=== PATIENT | male | born 1965 | race African-American/Black ===

== ENCOUNTER 2019-05-31 18:53 | Inpatient (IN) | payer MEDICAID ==
[~2019-05-31] VITALS: Ht 190.5 cm; Wt 108.9 kg
[~2019-05-31 18:53] MED LIST: AMITRIPTYLINE H25 MG ORAL; AMITRIPTYLINE100 M1 PO; COZAAR50 MG ORAL; DIABETA5 MG ORAL; ENALAPRIL MALEA20 MG PO; GABAPENTIN800 MG ORAL; GLIPIZIDE5 MG ORAL; HUMALOG 75/255 UNIT1 SUBQ; HUMALOG100 UNIT/4 SUBQ; LANTUS SOL100 UNIT/1 SUBQ; LANTUS5 UNITS SUBQ; LEVAQUIN500 MG ORAL; METFORMIN HCL500 M1 ORAL; NEURONTIN100 MG ORAL; NEURONTIN600 MG ORAL; NORCO 5-325 TA1 EACH ORAL; NOVOLIN R100 UNIT/1 SUBQ; PREDNISONE10 MG ORAL; PREDNISONE5 MG ORAL; TENORMIN50 MG ORAL; TRAMADOL HCL50 MG ORAL; TYLENOL650 MG/20. ORAL; UNOBMED; [UNRECOGNIZED DRUG - SUPPLY]
--- NOTE | 2019-05-31 19:15 | NUR ---
ED Nurse Note: pt walked in c/o wound on right posterior lower extremity and elevated sugar, pt reports his sugar at home was 500s, at the bedside accucheck was 191. noted diabetic ulcer on right posterior leg, with no discharge, dry, redness and yellow crust in the center of the wuond. pt AA&ox4, gcs=15, skin warm and dry resp even and unlabored on RA, -n/v/d, ambulates w/ steady gait. Addendum: 05/31/19 at 2110 by KPADarielK D Nurse Note: pt walked in c/o wound on Left posterior lower extremity and elevated sugar, pt reports his sugar at home was 500s, at the bedside accucheck was 191. noted diabetic ulcer on LEft posterior leg, with no discharge, dry, redness and yellow crust in the center of the wuond. pt AA&ox4, gcs=15, skin warm and dry resp even and unlabored on RA, -n/v/d, ambulates w/ steady gait.
[2019-05-31 19:35] VITALS: BP 157/85
[2019-05-31 20:00] LABS: BASOPHILS % (AUTO) 1.7 % (0.0-2.0); HEMATOCRIT 41.2 % (42.0-52.0); HEMOGLOBIN 13.9 G/DL (14.2-18.0); MEAN CORPUSCULAR VOLUME 93 FL (80-99); MONOCYTES % (AUTO) 14.1 % (1.0-10.0); NEUTROPHILS % (AUTO) 54.3 % (45.0-75.0); PLATELET COUNT 269 K/UL (150-450); RED BLOOD COUNT 4.41 M/UL (4.70-6.10); RED CELL DISTRIBUTION WIDTH 12.1 % (11.6-14.8); WHITE BLOOD COUNT 7.1 K/UL (4.8-10.8)
[2019-05-31 20:07] LABS: ANION GAP 6 mmol/L (5-15); BLOOD UREA NITROGEN 19 mg/dL (7-18); CALCIUM 9.1 MG/DL (8.5-10.1); CARBON DIOXIDE 29 MMOL/L (21-32); CHLORIDE 108 MMOL/L (98-107); CREATININE 1.5 MG/DL (0.55-1.30); POTASSIUM 3.9 MMOL/L (3.5-5.1); SODIUM 143 MMOL/L (136-145)
[2019-05-31 20:19] LABS: ALANINE AMINOTRANSFERASE 18 U/L (12-78); ALBUMIN 3.1 G/DL (3.4-5.0); ALBUMIN/GLOBULIN RATIO 0.7 (1.0-2.7); ALKALINE PHOSPHATASE 83 U/L (46-116); ASPARTATE AMINO TRANSFERASE 13 U/L (15-37); BILIRUBIN,TOTAL 0.2 MG/DL (0.2-1.0)
[2019-05-31] MEDS ORDERED: Piperacillin/Tazobactam 3.375 GM in NS 110 ML IVPB ONE (20:30)
[2019-05-31 20:35] VITALS: BP 144/86
--- NOTE | 2019-05-31 20:45 | NUR ---
ED Nurse Note: pt c/o pain on left leg on the wound site, ERMD notified.
[2019-05-31] MEDS ORDERED: Morphine Sulfate 4mg/ml Inj (IV USE ONLY) IVP ONE (21:00)
--- NOTE | 2019-05-31 21:00 | NUR ---
ED Nurse Note: pt resting at this time, vss, no sx distress, will cont monitor. blanket and pillow provided for comfort.
--- NOTE | 2019-05-31 21:29 | NUR ---
ED Nurse Note: report given to DAVID Singleton from [facility].
--- NOTE | 2019-05-31 21:36 | Emergency Room Report ---
History of Present Illness General Chief Complaint: Pain Source: Patient Present Illness HPI 54-year-old male presents ED for evaluation. Complaining of left leg pain and swelling. States he is a diabetic and does not have his test strips. States his sugar might be high. Also has a ulcer to the back of his left leg for the last few weeks. States he has been unable to take care of it. Pain is throbbing, 9 out of 10, nonradiating. Denies fevers or chills. No other aggravating relieving factors. Denies any other associated symptoms Allergies: Coded Allergies: No Known Allergies (Unverified , 01/20/14) Patient History Past Medical History: DM, HTN, asthma, other - neuropathy Past Surgical History: none Pertinent Family History: none Social History: Denies: smoking, alcohol use, drug use Immunizations: UTD Reviewed Nursing Documentation: PMH: Agreed; PSxH: Agreed Nursing Documentation-PMH Hx Hypertension: Yes Hx Asthma: Yes Hx COPD: No Hx Diabetes: Yes Hx Cancer: No Hx Gastrointestinal Problems: Yes Hx Neurological Problems: Yes - Neuropathy Hx Peripheral Neuropathy: Yes Hx Dizziness: Yes Hx Syncope: Yes Hx Headaches: Yes Hx Weakness: Yes Review of Systems All Other Systems: negative except mentioned in HPI Physical Exam Vital Signs Date Time Temp Pulse Resp B/P (MAP) Pulse Ox O2 Delivery O2 Flow Rate FiO2 05/31/19 19:01 98.1 116 18 158/95 (116) 95 Room Air Sp02 EP Interpretation: reviewed, normal General Appearance: no apparent distress, alert, GCS 15, non-toxic Head: normocephalic, atraumatic Eyes: bilateral eye normal inspection, bilateral eye PERRL ENT: hearing grossly normal, normal pharynx, no angioedema, normal voice Neck: full range of motion, supple/symm/no masses Respiratory: chest non-tender, lungs clear, normal breath sounds, speaking full sentences Cardiovascular #1: regular rate, rhythm, no edema Cardiovascular #2: 2+ carotid (R), 2+ carotid (L), 2+ radial (R), 2+ radial (L) , 2+ dorsalis pedis (R), 2+ dorsalis pedis (L) Gastrointestinal: normal bowel sounds, non tender, soft, non-distended, no guarding, no rebound Rectal: deferred Genitourinary: normal inspection, no CVA tenderness Musculoskeletal: back normal, gait/station normal, normal range of motion, swelling - LLE Neurologic: alert, oriented x3, responsive, motor strength/tone normal, sensory intact, speech normal Psychiatric: judgement/insight normal, memory normal, mood/affect normal, no suicidal/homicidal ideation Reflexes: 3+ bicep (R), 3+ bicep (L), 3+ tricep (R), 3+ tricep (L), 3+ knee (R) , 3+ knee (L) Skin: other - erythema/induration LLE, 3x3cm ulcer to posterior leg Lymphatic: no adenopathy Medical Decision Making Diagnostic Impression: Primary Impression: Acute on chronic renal insufficiency Additional Impressions: diabetes Leg ulcer Qualified Codes: L97.929 - Non-pressure chronic ulcer of unspecified part of left lower leg with unspecified severity Neuropathy ER Course Hospital Course 54 yo M presents with pain, swelling to LLE Differential diagnoses include: Cellulitis, abscess, rash. Clinical course Patient placed on stretcher. After initial history and physical I ordered labs , blood Cx, UA, IVFs, pain meds labs reviewed - no leukocytosis, Hb/Hct stable, BUN/Cr elevated, lactic ok wound culture obtained antibiotics given. Case discussed with Dr Rosa's service and he agreed to accept the patient to his service for further care and support Diagnosis - acute on chronic renal insufficiency, diabetes, leg ulcer, neuropathy Patient admitted to floor in serious condition Labs Test 05/31/19 19:30 White Blood Count 7.1 K/UL (4.8-10.8) Red Blood Count 4.41 M/UL (4.70-6.10) Hemoglobin 13.9 G/DL (14.2-18.0) Hematocrit 41.2 % (42.0-52.0) Mean Corpuscular Volume 93 FL (80-99) Mean Corpuscular Hemoglobin 31.4 PG (27.0-31.0) Mean Corpuscular Hemoglobin Concent 33.6 G/DL (32.0-36.0) Red Cell Distribution Width 12.1 % (11.6-14.8) Platelet Count 269 K/UL (150-450) Mean Platelet Volume 5.3 FL (6.5-10.1) Neutrophils (%) (Auto) 54.3 % (45.0-75.0) Lymphocytes (%) (Auto) 24.0 % (20.0-45.0) Monocytes (%) (Auto) 14.1 % (1.0-10.0) Eosinophils (%) (Auto) 6.0 % (0.0-3.0) Basophils (%) (Auto) 1.7 % (0.0-2.0) Sodium Level 143 MMOL/L (136-145) Potassium Level 3.9 MMOL/L (3.5-5.1) Chloride Level 108 MMOL/L (98-107) Carbon Dioxide Level 29 MMOL/L (21-32) Anion Gap 6 mmol/L (5-15) Blood Urea Nitrogen 19 mg/dL (7-18) Creatinine 1.5 MG/DL (0.55-1.30) Estimat Glomerular Filtration Rate 58.9 mL/min (>60) Glucose Level 112 MG/DL (74-106) Lactic Acid Level 1.50 mmol/L (0.4-2.0) Calcium Level 9.1 MG/DL (8.5-10.1) Total Bilirubin 0.2 MG/DL (0.2-1.0) Aspartate Amino Transf (AST/SGOT) 13 U/L (15-37) Alanine Aminotransferase (ALT/SGPT) 18 U/L (12-78) Alkaline Phosphatase 83 U/L (46-116) Pro-B-Type Natriuretic Peptide 154 pg/mL (0-125) Total Protein 7.7 G/DL (6.4-8.2) Albumin 3.1 G/DL (3.4-5.0) Globulin 4.6 g/dL Albumin/Globulin Ratio 0.7 (1.0-2.7) Last Vital Signs Date Time Temp Pulse Resp B/P (MAP) Pulse Ox O2 Delivery O2 Flow Rate FiO2 05/31/19 20:35 98.1 115 18 144/86 100 Room Air Status: improved Disposition: ADMITTED INPATIENT Condition: Serious Referrals: [facility],REFERRING (PCP) Jasper Perez MD May 31, 2019 21:36
--- NOTE | 2019-05-31 21:38 | NUR ---
ED Nurse Note: PT TRANSFERRED TO [facility] VIA GURNEY BY STABLE ATTENDANT, ALL BELONGINGS SENT W/ PT W/ COMPLETED LIST, IV INTACT AND PATENT, VSS. RESP EVEN AND UNLABORED ON RA.
[2019-05-31 22:52] VITALS: BP 149/110
--- NOTE | 2019-05-31 23:30 | NUR ---
NURSE NOTES: Pt is admitted from ER in stable condition at 2200with Dx of hyperglycemia , bilat knee pain and left calf diabetic ulcer under Dr. Forman. Pt is awake , alert and ambulatory. Pt has left calf diabetic ulcer. Pt reports pain 7/10 on bilat knee and left calf wound site. Dr. Forman's exchange called for admission orders. Dr. Morrsi called back with admission orders, Orders read back and entered in the EMR. made aware of BP 149/110, Dr. Morris ordered hydralazine 25mg PO q6hrs prn SBP greater than 170. Pt is calm in bed now. No acute distress noted. Fall precaution in place, bed locked low in position,side rails up and call light within reach. Bed alarm on. Pt oriented to the unit. Pt's belongings checked and verified. Pt has two cell phones with cracked front glass and a channel opener outsoles at the bedside. Pt will be monitored.
[2019-06-01] VITALS (8 sets, daily range): BP systolic 104–180; BP diastolic 65–108
[2019-06-01] MEDS ORDERED: traMADol 50mg tab ORAL PRN (01:15)
[2019-06-01] MEDS ORDERED: HydrALAZINE 25mg tab ORAL PRN (01:30)
[2019-06-01] MEDS: HYDROcodone/Acetamin 5/325 tab ORAL PRN ×4 (02:16→20:43)
--- NOTE | 2019-06-01 04:01 | NUR ---
NURSE NOTES: Pt is in bed, appears to be comfortable. Wound care provided on the left calf, dressing applied.
[2019-06-01] MEDS ORDERED: Vancomycin 1.25gm vial IVPB ONE (04:25)
[2019-06-01] MEDS: Vancomycin 1.25gm/D5W 275ml IVPB SCH ×4 (04:39→19:09)
[2019-06-01] MEDS: Piperacillin/Tazobactam 3.375 GM in NS 110 ML IVPB SCH ×3 (06:21→20:43)
[2019-06-01] MEDS: NovoLOG Insulin Flexpen SUBQ SCH ×4 (06:28→21:01)
--- NOTE | 2019-06-01 08:00 | NUR ---
NURSE NOTES: Patient is awake and alert,respirations are unlabored.Right leg elevated noted wound to right l eg ,no drainage noted.No odor noted.Dressing applied,wound care consult was ordered.patient eating breakfast.Call light within reach.
[2019-06-01] MEDS: Heparin 5000 units/ml inj SUBQ SCH ×2 (10:07→20:44)
[2019-06-01] MEDS: Losartan 50mg tab ORAL SCH ×2 (10:08→18:00)
[2019-06-01] MEDS: Amitriptyline 100mg tab ORAL SCH (10:08)
[2019-06-01] MEDS ORDERED: D5W 275ml ONE (11:23)
[2019-06-01] MEDS ORDERED: Tubing IV Secondary IV ONE (11:23)
[2019-06-01] MEDS ORDERED: NS 500ML ONE (11:23)
--- NOTE | 2019-06-01 11:33 | History and Physical ---
History of Present Illness General Date patient seen: Jun 01, 2019 Reason for Hospitalization: Pain Present Illness HPI 54-year-old male presents ED for evaluation. Complaining of left leg pain and swelling. States he is a diabetic and does not have his test strips. States his sugar might be high. Also has a ulcer to the back of his left leg for the last few weeks. States he has been unable to take care of it. Pain is throbbing, 9 out of 10, nonradiating. Denies fevers or chills. No other aggravating relieving factors. Denies any other associated symptoms patient complains of difficulty walking secondary to pain in his knees. Admits to history of left knee replacement, right knee arthroscopy. However he is able to ambulate. He admits to numbness and tingling down his legs with history of neuropathy. Admits to back pain. Denies any saddle anesthesia, urinary or bowel incontinence. Denies any fevers chills, chest pain, shortness of breath. Past medical history: Diabetes, hypertension Past surgical history; left knee surgery Medications: As per med rec Allergies: None Family history: Denies Past social history: Denies drug use, EtOH use, smoking. ROS: As stated above. Aside from HPI all other review of systems are negative including more than 12 systems. Allergies: Coded Allergies: No Known Allergies (Unverified , 01/20/14) Medication History Scheduled Amitriptyline Hcl* (Amitriptyline Hcl*), 100 MG PO DAILY, (Reported) Atenolol* (Tenormin*), 50 MG ORAL BID, (Reported) Enalapril Maleate* (Enalapril Maleate*), 20 MG PO DAILY, (Reported) Gabapentin* (Neurontin*), 200 MG ORAL Q6HR, (Reported) Glipizide* (Glipizide*), 5 MG ORAL BIDAC, (Reported) Insulin Glargine (Lantus), 22 SUBQ Q12HR, (Reported) Insulin Regular, Human* (Novolin R*), 0 SUBQ AC+HS, (Reported) Losartan Potassium* (Cozaar*), 50 MG ORAL TWICE A DAY, (Reported) Metformin Hcl* (Metformin Hcl*), 500 MG ORAL TWICE A DAY, (Reported) Scheduled PRN Acetaminophen (Acetaminophen), 500 MG ORAL Q8H PRN for Prn Headache/Temp > 101, (Reported) Hydrocodone Bit/Acetaminophen 5-325* ([place] 5-325*), 1 TAB ORAL Q12HR PRN for For Pain Tramadol Hcl* (Ultram*), 50 MG ORAL Q6H PRN for For Pain, (Reported) Miscellaneous Medications [acuucheck strips] Patient History Healthcare decision maker Resuscitation status Full Code Advanced Directive on File Physical Exam Last 24 Hour Vital Signs Date Time Temp Pulse Resp B/P (MAP) Pulse Ox O2 Delivery O2 Flow Rate FiO2 06/01/19 10:09 172/107 06/01/19 10:09 97 172/107 06/01/19 10:08 172/107 06/01/19 09:53 97 172/107 (128) 06/01/19 08:00 98.1 104 20 177/108 (131) 96 06/01/19 07:02 155/103 (120) 06/01/19 04:51 180/111 06/01/19 04:00 98.1 104 20 180/106 (130) 97 06/01/19 00:00 98.4 105 20 155/105 (122) 97 05/31/19 23:08 Room Air 05/31/19 22:52 98.5 109 20 149/110 (123) 97 05/31/19 21:37 99.5 110 18 159/86 98 Room Air 05/31/19 21:21 99.5 05/31/19 20:35 98.1 115 18 144/86 100 Room Air 05/31/19 20:00 110 18 Room Air 05/31/19 19:35 98.5 102 18 157/85 98 Room Air 05/31/19 19:01 98.1 116 18 158/95 (116) 95 Room Air Intake and Output 05/31/19 06/01/19 18:59 06:59 Intake Total 975.00 ml Balance 975.00 ml Intake Oral 700 ml IV Total 275.00 ml # Voids 5 Laboratory Tests Test 05/31/19 19:30 White Blood Count 7.1 K/UL (4.8-10.8) Red Blood Count 4.41 M/UL (4.70-6.10) L Hemoglobin 13.9 G/DL (14.2-18.0) L Hematocrit 41.2 % (42.0-52.0) L Mean Corpuscular Volume 93 FL (80-99) Mean Corpuscular Hemoglobin 31.4 PG (27.0-31.0) H Mean Corpuscular Hemoglobin Concent 33.6 G/DL (32.0-36.0) Red Cell Distribution Width 12.1 % (11.6-14.8) Platelet Count 269 K/UL (150-450) Mean Platelet Volume 5.3 FL (6.5-10.1) L Neutrophils (%) (Auto) 54.3 % (45.0-75.0) Lymphocytes (%) (Auto) 24.0 % (20.0-45.0) Monocytes (%) (Auto) 14.1 % (1.0-10.0) H Eosinophils (%) (Auto) 6.0 % (0.0-3.0) H Basophils (%) (Auto) 1.7 % (0.0-2.0) Sodium Level 143 MMOL/L (136-145) Potassium Level 3.9 MMOL/L (3.5-5.1) Chloride Level 108 MMOL/L (98-107) H Carbon Dioxide Level 29 MMOL/L (21-32) Anion Gap 6 mmol/L (5-15) Blood Urea Nitrogen 19 mg/dL (7-18) H Creatinine 1.5 MG/DL (0.55-1.30) H Estimat Glomerular Filtration Rate 58.9 mL/min (>60) Glucose Level 112 MG/DL (74-106) H Lactic Acid Level 1.50 mmol/L (0.4-2.0) Calcium Level 9.1 MG/DL (8.5-10.1) Total Bilirubin 0.2 MG/DL (0.2-1.0) Aspartate Amino Transf (AST/SGOT) 13 U/L (15-37) L Alanine Aminotransferase (ALT/SGPT) 18 U/L (12-78) Alkaline Phosphatase 83 U/L (46-116) Pro-B-Type Natriuretic Peptide 154 pg/mL (0-125) H Total Protein 7.7 G/DL (6.4-8.2) Albumin 3.1 G/DL (3.4-5.0) L Globulin 4.6 g/dL Albumin/Globulin Ratio 0.7 (1.0-2.7) L Height (Feet): 6 Height (Inches): 3.00 Weight (Pounds): 240 Medications Current Medications Medications (Trade) Dose Ordered Sig/Ramona Route PRN Reason Start Time Stop Time Status Last Admin Dose Admin Acetaminophen/ Hydrocodone Bitart ([place] 5/325) 1 tab Q4H PRN ORAL Severe Pain (Pain Scale 7-10) 06/01/19 01:15 06/08/19 01:14 06/01/19 06:23 Amitriptyline HCl (Elavil) 100 mg DAILY ORAL 06/01/19 09:00 07/01/19 08:59 06/01/19 10:08 Atenolol (Tenormin) 50 mg BID ORAL 06/01/19 09:00 07/01/19 08:59 06/01/19 10:09 Dextrose (Dextrose 50%) 25 ml Q30M PRN IV Hypoglycemia 06/01/19 01:15 07/01/19 01:14 Dextrose (Dextrose 50%) 50 ml Q30M PRN IV Hypoglycemia 06/01/19 01:15 07/01/19 01:14 Enalapril Maleate (Vasotec) 20 mg DAILY ORAL 06/01/19 09:00 07/01/19 08:59 06/01/19 10:09 Gabapentin (Neurontin) 200 mg Q6HR ORAL 06/01/19 06:00 07/01/19 05:59 06/01/19 06:21 Heparin Sodium (Porcine) (Heparin 5000 units/ml) 5,000 units EVERY 12 HOURS SUBQ 06/01/19 09:00 07/01/19 08:59 06/01/19 10:07 Hydralazine HCl (Apresoline) 25 mg Q6H PRN ORAL For High Blood Pressure 06/01/19 01:30 07/01/19 01:29 06/01/19 04:51 Insulin Aspart (NovoLOG) BEFORE MEALS AND HS SUBQ 06/01/19 06:30 07/01/19 06:29 06/01/19 06:28 Losartan Potassium (Cozaar) 50 mg TWICE A DAY ORAL 06/01/19 09:00 07/01/19 08:59 06/01/19 10:08 Piperacillin Sod/ Tazobactam Sod 3.375 gm/Sodium Chloride 110 ml @ 27.5 mls/hr Q8H IVPB 06/01/19 04:00 06/08/19 03:59 06/01/19 06:21 Tramadol HCl (Ultram) 50 mg Q6H PRN ORAL Mild Pain (Pain Scale 1-3) 06/01/19 01:15 06/08/19 01:14 Vancomycin HCl (Vanco rx to dose) 1 ea DAILY PRN MISC Per rx protocol 06/01/19 01:30 07/01/19 01:29 Vancomycin HCl 1.25 gm/Dextrose 275 ml @ 183.33 mls/ hr Q12H IVPB 06/01/19 06:00 06/06/19 05:59 06/01/19 04:39 Objective Narrative GENERAL: No acute distress, right lateral recumbent comfortably, alert HEENT: NCAT, non-icteric eyes, pupils PERRLA Neck: No cervical lymphadenopathy, trachea midline CV: Regular rate and rhythm, no murmurs rubs or gallops RESP: Clear to auscultation bilaterally, no wheezes/rhonchi/crackles EXT: Normal muscle tone, +5/5 muscle strength, right knee synovitis no tenderness or warmth. Left posterior clean ulcer, about 2.5 cm diameter, no drainage NEURO: No obvious deficits, alert and oriented x3 Assessment/Plan Diagnosis [place] I: htn urgency dm ulcer starla 54-year-old male with past medical history of diabetes, hypertension, neuropathy , presents for difficulty walking #Hypertensive urgency -BP control -Continue to monitor vitals -Pain control #STARLA over CKD -Nephrology consult, appreciate recs -Avoid nephrotoxic medication -Hold ANIYA or arm -IV fluid #Left leg ulcer -General surgery consult, appreciate recs -Infectious disease consult appreciate Asim -Antibiotics per infectious disease #nDiabetes -Check A1c -Titrate insulin -Accu-Cheks q. before meals nightly #Difficulty walking likely secondary to osteoarthritis of bilateral knees with left knee status post reconstruction -PT OT -Pain control Advanced care planning discussion with patient. Time spent: 17 minutes. Patient would like to be full code The time of my note may not reflect the time of my patient encounter.. Eleanor Corona DO Jun 01, 2019 11:33
--- NOTE | 2019-06-01 12:25 | Infectious Diseases Prog Note ---
Assessment/Plan Assessment/Plan Full consult dictated: A) 1) left leg wound infection, ? osteomyelitis 2) pmh noted 3) allergies - nkda P) 1) zoysn and vancomycin 2) surgery evaluation 3) check cultures, labs, wc 4) consider MRI 5) thank you Subjective Allergies: Coded Allergies: No Known Allergies (Unverified , 01/20/14) Objective Vital Signs Last 24 Hour Vital Signs Date Time Temp Pulse Resp B/P (MAP) Pulse Ox O2 Delivery O2 Flow Rate FiO2 06/01/19 10:09 172/107 06/01/19 10:09 97 172/107 06/01/19 10:08 172/107 06/01/19 09:53 97 172/107 (128) 06/01/19 08:00 98.1 104 20 177/108 (131) 96 06/01/19 07:02 155/103 (120) 06/01/19 04:51 180/111 06/01/19 04:00 98.1 104 20 180/106 (130) 97 06/01/19 00:00 98.4 105 20 155/105 (122) 97 05/31/19 23:08 Room Air 05/31/19 22:52 98.5 109 20 149/110 (123) 97 05/31/19 21:37 99.5 110 18 159/86 98 Room Air 05/31/19 21:21 99.5 05/31/19 20:35 98.1 115 18 144/86 100 Room Air 05/31/19 20:00 110 18 Room Air 05/31/19 19:35 98.5 102 18 157/85 98 Room Air 05/31/19 19:01 98.1 116 18 158/95 (116) 95 Room Air Height (Feet): 6 Height (Inches): 3.00 Weight (Pounds): 240 Laboratory Tests Test 05/31/19 19:30 White Blood Count 7.1 K/UL (4.8-10.8) Red Blood Count 4.41 M/UL (4.70-6.10) L Hemoglobin 13.9 G/DL (14.2-18.0) L Hematocrit 41.2 % (42.0-52.0) L Mean Corpuscular Volume 93 FL (80-99) Mean Corpuscular Hemoglobin 31.4 PG (27.0-31.0) H Mean Corpuscular Hemoglobin Concent 33.6 G/DL (32.0-36.0) Red Cell Distribution Width 12.1 % (11.6-14.8) Platelet Count 269 K/UL (150-450) Mean Platelet Volume 5.3 FL (6.5-10.1) L Neutrophils (%) (Auto) 54.3 % (45.0-75.0) Lymphocytes (%) (Auto) 24.0 % (20.0-45.0) Monocytes (%) (Auto) 14.1 % (1.0-10.0) H Eosinophils (%) (Auto) 6.0 % (0.0-3.0) H Basophils (%) (Auto) 1.7 % (0.0-2.0) Sodium Level 143 MMOL/L (136-145) Potassium Level 3.9 MMOL/L (3.5-5.1) Chloride Level 108 MMOL/L (98-107) H Carbon Dioxide Level 29 MMOL/L (21-32) Anion Gap 6 mmol/L (5-15) Blood Urea Nitrogen 19 mg/dL (7-18) H Creatinine 1.5 MG/DL (0.55-1.30) H Estimat Glomerular Filtration Rate 58.9 mL/min (>60) Glucose Level 112 MG/DL (74-106) H Lactic Acid Level 1.50 mmol/L (0.4-2.0) Calcium Level 9.1 MG/DL (8.5-10.1) Total Bilirubin 0.2 MG/DL (0.2-1.0) Aspartate Amino Transf (AST/SGOT) 13 U/L (15-37) L Alanine Aminotransferase (ALT/SGPT) 18 U/L (12-78) Alkaline Phosphatase 83 U/L (46-116) Pro-B-Type Natriuretic Peptide 154 pg/mL (0-125) H Total Protein 7.7 G/DL (6.4-8.2) Albumin 3.1 G/DL (3.4-5.0) L Globulin 4.6 g/dL Albumin/Globulin Ratio 0.7 (1.0-2.7) L Current Medications Medications (Trade) Dose Ordered Sig/Ramona Route PRN Reason Start Time Stop Time Status Last Admin Dose Admin Acetaminophen/ Hydrocodone Bitart ([place] 5/325) 1 tab Q4H PRN ORAL Severe Pain (Pain Scale 7-10) 06/01/19 01:15 06/08/19 01:14 06/01/19 06:23 Amitriptyline HCl (Elavil) 100 mg DAILY ORAL 06/01/19 09:00 07/01/19 08:59 06/01/19 10:08 Atenolol (Tenormin) 50 mg BID ORAL 06/01/19 09:00 07/01/19 08:59 06/01/19 10:09 Dextrose (Dextrose 50%) 25 ml Q30M PRN IV Hypoglycemia 06/01/19 01:15 07/01/19 01:14 Dextrose (Dextrose 50%) 50 ml Q30M PRN IV Hypoglycemia 06/01/19 01:15 07/01/19 01:14 Enalapril Maleate (Vasotec) 20 mg DAILY ORAL 06/01/19 09:00 07/01/19 08:59 06/01/19 10:09 Gabapentin (Neurontin) 200 mg Q6HR ORAL 06/01/19 06:00 07/01/19 05:59 06/01/19 06:21 Heparin Sodium (Porcine) (Heparin 5000 units/ml) 5,000 units EVERY 12 HOURS SUBQ 06/01/19 09:00 07/01/19 08:59 06/01/19 10:07 Hydralazine HCl (Apresoline) 25 mg Q6H PRN ORAL For High Blood Pressure 06/01/19 01:30 07/01/19 01:29 06/01/19 04:51 Insulin Aspart (NovoLOG) BEFORE MEALS AND HS SUBQ 06/01/19 06:30 07/01/19 06:29 06/01/19 11:55 Losartan Potassium (Cozaar) 50 mg TWICE A DAY ORAL 06/01/19 09:00 07/01/19 08:59 06/01/19 10:08 Piperacillin Sod/ Tazobactam Sod 3.375 gm/Sodium Chloride 110 ml @ 27.5 mls/hr Q8H IVPB 06/01/19 04:00 06/08/19 03:59 06/01/19 06:21 Tramadol HCl (Ultram) 50 mg Q6H PRN ORAL Mild Pain (Pain Scale 1-3) 06/01/19 01:15 06/08/19 01:14 Vancomycin HCl (Vanco rx to dose) 1 ea DAILY PRN MISC Per rx protocol 06/01/19 01:30 07/01/19 01:29 Vancomycin HCl 1.25 gm/Dextrose 275 ml @ 183.33 mls/ hr Q12H IVPB 06/01/19 06:00 06/06/19 05:59 06/01/19 04:39 Dez Cardoza MD Jun 01, 2019 12:25
--- NOTE | 2019-06-01 12:46 | Consultation ---
History of Present Illness General Chief Complaint: Pain Present Illness HPI 54yo male with past medical history significant for DM, HTN, diabetic neuropathy asthem presents with worsening LE leg ulcer. No report of fevers or chills. Cr on presentation 1.5 Denies history of kidney disease Allergies: Coded Allergies: No Known Allergies (Unverified , 01/20/14) Medication History Scheduled Amitriptyline Hcl* (Amitriptyline Hcl*), 100 MG PO DAILY, (Reported) Atenolol* (Tenormin*), 50 MG ORAL BID, (Reported) Enalapril Maleate* (Enalapril Maleate*), 20 MG PO DAILY, (Reported) Gabapentin* (Neurontin*), 200 MG ORAL Q6HR, (Reported) Glipizide* (Glipizide*), 5 MG ORAL BIDAC, (Reported) Insulin Glargine (Lantus), 22 SUBQ Q12HR, (Reported) Insulin Regular, Human* (Novolin R*), 0 SUBQ AC+HS, (Reported) Losartan Potassium* (Cozaar*), 50 MG ORAL TWICE A DAY, (Reported) Metformin Hcl* (Metformin Hcl*), 500 MG ORAL TWICE A DAY, (Reported) Scheduled PRN Acetaminophen (Acetaminophen), 500 MG ORAL Q8H PRN for Prn Headache/Temp > 101, (Reported) Hydrocodone Bit/Acetaminophen 5-325* ([place] 5-325*), 1 TAB ORAL Q12HR PRN for For Pain Tramadol Hcl* (Ultram*), 50 MG ORAL Q6H PRN for For Pain, (Reported) Miscellaneous Medications [acuucheck strips] Patient History Healthcare decision maker Resuscitation status Full Code Advanced Directive on File Review of Systems Constitutional: Denies: no symptoms, see HPI, chills, sweats, fever, malaise, weakness, other Eye: Denies: no symptoms, see HPI, eye pain, blurred vision, tearing, double vision, nose pain, nose congestion, acuity changes, discharge, other ENT: Denies: no symptoms, see HPI, ear pain, ear discharge, nose pain, nose congestion, throat pain, throat swelling, mouth pain, hearing loss, nasal discharge, other Respiratory: Denies: no symptoms, see HPI, cough, orthopnea, shortness of breath, stridor, wheezing, GOLDSMITH, sputum, other Cardiovascular: Denies: no symptoms, see HPI, chest pain, edema, palpitations, syncope, PND, other Gastrointestinal: Denies: no symptoms, see HPI, abdominal pain, constipation, diarrhea, nausea, vomiting, melena, hematemesis, other Genitourinary: Denies: no symptoms, see HPI, discharge, dysuria, frequency, hematuria, pain, retention, incontinence, urgency, vag bleed/dc, other Psychiatric: Denies: no symptoms, see HPI, prior hx, anxiety, depressed feelings, emotional problems, SI, HI, hallucinations, other Neurological: Denies: no symptoms, see HPI, headache, numbness, paresthesia, seizure, tingling, tremors, focal weakness, syncope, dizziness, other Hematologic/Lymphatic: Denies: no symptoms, see HPI, anemia, blood clots, easy bleeding, easy bruising, swollen glands, diathesis, other Physical Exam General Appearance: WD/WN, no apparent distress Lines, tubes and drains: peripheral HEENT: normocephalic, atraumatic, anicteric Neck: non-tender Respiratory/Chest: chest wall non-tender, lungs clear, normal breath sounds, no respiratory distress Cardiovascular/Chest: normal peripheral pulses, normal rate, regular rhythm Abdomen: normal bowel sounds, non tender, soft Extremities: other - left leg wound Neurologic: alert, oriented x 3, responsive Last 24 Hour Vital Signs Date Time Temp Pulse Resp B/P (MAP) Pulse Ox O2 Delivery O2 Flow Rate FiO2 06/01/19 12:00 98.2 19 157/103 (121) 98 06/01/19 10:09 172/107 06/01/19 10:09 97 172/107 06/01/19 10:08 172/107 06/01/19 09:53 97 172/107 (128) 06/01/19 08:00 98.1 104 20 177/108 (131) 96 06/01/19 07:02 155/103 (120) 06/01/19 04:51 180/111 06/01/19 04:00 98.1 104 20 180/106 (130) 97 06/01/19 00:00 98.4 105 20 155/105 (122) 97 05/31/19 23:08 Room Air 8/21/19 22:52 98.5 109 20 149/110 (123) 97 05/31/19 21:37 99.5 110 18 159/86 98 Room Air 05/31/19 21:21 99.5 05/31/19 20:35 98.1 115 18 144/86 100 Room Air 05/31/19 20:00 110 18 Room Air 05/31/19 19:35 98.5 102 18 157/85 98 Room Air 05/31/19 19:01 98.1 116 18 158/95 (116) 95 Room Air Intake and Output 05/31/19 06/01/19 18:59 06:59 Intake Total 975.00 ml Balance 975.00 ml Intake Oral 700 ml IV Total 275.00 ml # Voids 5 Laboratory Tests Test 05/31/19 19:30 White Blood Count 7.1 K/UL (4.8-10.8) Red Blood Count 4.41 M/UL (4.70-6.10) L Hemoglobin 13.9 G/DL (14.2-18.0) L Hematocrit 41.2 % (42.0-52.0) L Mean Corpuscular Volume 93 FL (80-99) Mean Corpuscular Hemoglobin 31.4 PG (27.0-31.0) H Mean Corpuscular Hemoglobin Concent 33.6 G/DL (32.0-36.0) Red Cell Distribution Width 12.1 % (11.6-14.8) Platelet Count 269 K/UL (150-450) Mean Platelet Volume 5.3 FL (6.5-10.1) L Neutrophils (%) (Auto) 54.3 % (45.0-75.0) Lymphocytes (%) (Auto) 24.0 % (20.0-45.0) Monocytes (%) (Auto) 14.1 % (1.0-10.0) H Eosinophils (%) (Auto) 6.0 % (0.0-3.0) H Basophils (%) (Auto) 1.7 % (0.0-2.0) Sodium Level 143 MMOL/L (136-145) Potassium Level 3.9 MMOL/L (3.5-5.1) Chloride Level 108 MMOL/L (98-107) H Carbon Dioxide Level 29 MMOL/L (21-32) Anion Gap 6 mmol/L (5-15) Blood Urea Nitrogen 19 mg/dL (7-18) H Creatinine 1.5 MG/DL (0.55-1.30) H Estimat Glomerular Filtration Rate 58.9 mL/min (>60) Glucose Level 112 MG/DL (74-106) H Lactic Acid Level 1.50 mmol/L (0.4-2.0) Calcium Level 9.1 MG/DL (8.5-10.1) Total Bilirubin 0.2 MG/DL (0.2-1.0) Aspartate Amino Transf (AST/SGOT) 13 U/L (15-37) L Alanine Aminotransferase (ALT/SGPT) 18 U/L (12-78) Alkaline Phosphatase 83 U/L (46-116) Pro-B-Type Natriuretic Peptide 154 pg/mL (0-125) H Total Protein 7.7 G/DL (6.4-8.2) Albumin 3.1 G/DL (3.4-5.0) L Globulin 4.6 g/dL Albumin/Globulin Ratio 0.7 (1.0-2.7) L Microbiology Date/Time Source Procedure Growth Status 05/31/19 19:30 Wound Gram Stain - Final Resulted 05/31/19 19:30 Wound Wound Culture Pending Resulted Height (Feet): 6 Height (Inches): 3.00 Weight (Pounds): 240 Medications Current Medications Medications (Trade) Dose Ordered Sig/Ramona Route PRN Reason Start Time Stop Time Status Last Admin Dose Admin Acetaminophen/ Hydrocodone Bitart ([place] 5/325) 1 tab Q4H PRN ORAL Severe Pain (Pain Scale 7-10) 06/01/19 01:15 06/08/19 01:14 06/01/19 06:23 Amitriptyline HCl (Elavil) 100 mg DAILY ORAL 06/01/19 09:00 07/01/19 08:59 06/01/19 10:08 Atenolol (Tenormin) 50 mg BID ORAL 06/01/19 09:00 07/01/19 08:59 06/01/19 10:09 Dextrose (Dextrose 50%) 25 ml Q30M PRN IV Hypoglycemia 06/01/19 01:15 07/01/19 01:14 Dextrose (Dextrose 50%) 50 ml Q30M PRN IV Hypoglycemia 06/01/19 01:15 07/01/19 01:14 Enalapril Maleate (Vasotec) 20 mg DAILY ORAL 06/01/19 09:00 07/01/19 08:59 06/01/19 10:09 Gabapentin (Neurontin) 200 mg Q6HR ORAL 06/01/19 06:00 07/01/19 05:59 06/01/19 12:31 Heparin Sodium (Porcine) (Heparin 5000 units/ml) 5,000 units EVERY 12 HOURS SUBQ 06/01/19 09:00 07/01/19 08:59 06/01/19 10:07 Hydralazine HCl (Apresoline) 25 mg Q6H PRN ORAL For High Blood Pressure 06/01/19 01:30 07/01/19 01:29 06/01/19 04:51 Insulin Aspart (NovoLOG) BEFORE MEALS AND HS SUBQ 06/01/19 06:30 07/01/19 06:29 06/01/19 11:55 Losartan Potassium (Cozaar) 50 mg TWICE A DAY ORAL 06/01/19 09:00 07/01/19 08:59 06/01/19 10:08 Piperacillin Sod/ Tazobactam Sod 3.375 gm/Sodium Chloride 110 ml @ 27.5 mls/hr Q8H IVPB 06/01/19 04:00 06/08/19 03:59 06/01/19 06:21 Tramadol HCl (Ultram) 50 mg Q6H PRN ORAL Mild Pain (Pain Scale 1-3) 06/01/19 01:15 06/08/19 01:14 Vancomycin HCl (Vanco rx to dose) 1 ea DAILY PRN MISC Per rx protocol 06/01/19 01:30 07/01/19 01:29 Vancomycin HCl 1.25 gm/Dextrose 275 ml @ 183.33 mls/ hr Q12H IVPB 06/01/19 06:00 06/06/19 05:59 06/01/19 04:39 Assessment/Plan Problem List: (1) Hyperglycemia ICD Codes: R73.9 - Hyperglycemia, unspecified SNOMED: 04930214 (2) Generalized pain ICD Codes: R52 - Generalized pain SNOMED: 69696731 (3) HTN (hypertension) ICD Codes: I10 - HTN (hypertension) SNOMED: 42763656 (4) Coronary artery disease ICD Codes: I25.10 - Coronary artery disease SNOMED: 19629938 (5) Asthma ICD Codes: J45.909 - Asthma SNOMED: 570035194 (6) diabetes (7) Acute on chronic renal insufficiency ICD Codes: N17.9 - Acute on chronic renal insufficiency; N18.9 - Chronic kidney disease, unspecified SNOMED: 269237617 Diagnosis [place] I: STARLA on CKD left LE wound infection DM HTN Asthma COPD - s/p NS x1L - monitor off IVF for now - hold ACEi - add amlodipine 10mg daily - continue atenolol for now - further renal work up if Cr doesnt stablize by holding of ACEi - continue vanc and zosyn - avoid supratherapeutic vanco level - gen surg eval - consider MRI- Emeli Enamorado M.D. Jun 01, 2019 12:46
--- NOTE | 2019-06-01 13:07 | NUR ---
CASE MANAGEMENT: INITIAL REVIEW 54 YO M PRESENTED TO OUR ED FROM HOME CC: ELEVATED BS PMHx: DM2. HTN. ASTHMA. SI:HYPERGLYCEMIA. DIABETIC ULCER. T 98.1 HR 116 RR 18 B/P 158/95 SATS 95% ON RA CL 108 BUN 19 CR 1.5 GLU 112 AST 13 BNP 154 IS: NS BOLUS X1 ZOSYN IV X1 PATIENT ADMITTED TO MED/SURG 05/31/2019 @ 2027 DCP: PATIENT TO BE DISCHARGED TO HOME ONCE MEDICALLY CLEARED. PLAN OF CARE: 2D ECHO WOUND CARE Addendum: 06/01/19 at 1722 by Fatemeh Ga CM INTERQUAL MET
--- NOTE | 2019-06-01 13:13 | NUR ---
INSURANCE FAX#[phone] REVIEWS/CLINICALS
--- NOTE | 2019-06-01 13:43 | NUR ---
RD ASSESSMENT & RECOMMENDATIONS SEE CARE ACTIVITY FOR COMPLETE ASSESSMENT DAILY ESTIMATED NEEDS: Needs based on Wound, DM, obese 95.9kg adj 20-25 kcals/kg 4436-1765 total kcals 1.25-1.5 g protein/kg 120-144 g total protein 25-30 mL/kg 5841-4663 total fluid mLs NUTRITION DIAGNOSIS: 1) Increased pro needs r/t wound healing as evidenced by pt adm w/ open DM L leg ulcer. 2) Decreased sodium needs r/t hypertension as evidenced by BP of 157/103. PO DIET RECOMMENDATIONS: CCHO MED/ LOW NA + extra pro portions ADDITIONAL RECOMMENDATIONS: 1) Diet recs as above 2) F/up w/ wound care eval -> Add TAO BID -> Add Vit C 250mg BID -> Add MVI x1 daily 3) Maintain weekly calibrated bed scale wts ,
--- NOTE | 2019-06-01 14:04 | NUR ---
NURSE NOTES:WOUND CARE NOTES:Pt presented on admission with wound posterior L tibia.100% fibrinous slough noted at base of wound. Small area of necrosis noted along borders.(L)6.5cm x (W)5.5cm. Small amt non-odorous seropurulent exudate noted. darker skin tone noted periwound.No elevation in skin temp or edema noted periwound. Pt stated he developed small wound approx 3 weeks ago and has been self treating wound but wound became progressively worse. Pt denied pain at site of wound. Stable dry eschar noted to lateral L tibia. (L)4.5cm x (W)1cm. Pt stated wound was from previous fall.Diabetic/ Neuropathic Education provided of risks vs benefits to maintaining good foot care. Pt instructed to check skin daily during showers and to seek medical attention for any open wounds. Advised to thoroughly dry between toes after showers. Tx.Plan: Cleanse wound posterior L tibia with Saline. Apply Aquacel AG (Silver Alginate) cut to size of wound. Cover with ABD pad.Wrap with Kerlix daily and prn. Elevate legs on pillow.
--- NOTE | 2019-06-01 17:18 | Consultation ---
History of Present Illness General Date patient seen: Jun 01, 2019 Reason for Hospitalization: Pain Present Illness HPI This is a very pleasant 54-year-old male with multiple medical comorbidities including diabetes who presented to [facility] on emergency department complaining of worsening lower extremity pain. Patient states he had ulcer for a few weeks and is becoming more edematous and painful. He was admitted for care and management. Surgery was called to evaluate and assist with care. Patient seen, patient evaluated, chart reviewed. Patient states he is only had a for about 4 weeks but it may be longer. Unsure the true duration of the wound. States he takes care of the best that he can and people tried cleaning from before but without significant improvement Allergies: Coded Allergies: No Known Allergies (Unverified , 01/20/14) Medication History Scheduled Amitriptyline Hcl* (Amitriptyline Hcl*), 100 MG PO DAILY, (Reported) Atenolol* (Tenormin*), 50 MG ORAL BID, (Reported) Enalapril Maleate* (Enalapril Maleate*), 20 MG PO DAILY, (Reported) Gabapentin* (Neurontin*), 200 MG ORAL Q6HR, (Reported) Glipizide* (Glipizide*), 5 MG ORAL BIDAC, (Reported) Insulin Glargine (Lantus), 22 SUBQ Q12HR, (Reported) Insulin Regular, Human* (Novolin R*), 0 SUBQ AC+HS, (Reported) Losartan Potassium* (Cozaar*), 50 MG ORAL TWICE A DAY, (Reported) Metformin Hcl* (Metformin Hcl*), 500 MG ORAL TWICE A DAY, (Reported) Scheduled PRN Acetaminophen (Acetaminophen), 500 MG ORAL Q8H PRN for Prn Headache/Temp > 101, (Reported) Hydrocodone Bit/Acetaminophen 5-325* ([place] 5-325*), 1 TAB ORAL Q12HR PRN for For Pain Tramadol Hcl* (Ultram*), 50 MG ORAL Q6H PRN for For Pain, (Reported) Miscellaneous Medications [acuucheck strips] Patient History History Provided By: Patient, Medical Record, PMD Healthcare decision maker Resuscitation status Full Code Advanced Directive on File Past Medical/Surgical History Past Medical/Surgical History: (1) Respiratory distress (2) Respiratory distress (3) Chest pain (4) COPD exacerbation (5) Headache (6) Scalp abscess (7) Cranial nerve palsy (8) SIRS (systemic inflammatory response syndrome) (9) Hypercholesteremia (10) Cellulitis of scalp (11) Hyperglycemia (12) Neuropathy (13) Acute on chronic renal insufficiency (14) diabetes (15) Leg ulcer (16) Coronary artery disease (17) Hyperglycemia (18) Generalized pain (19) Asthma (20) HTN (hypertension) Review of Systems Review of Symptoms General ROS: no weight loss or fever Psychological ROS: no depression or mood changes, no memory loss Ophthalmic ROS: no visual changes or eye irritation ENT ROS: no nasal congestion, hearing loss, dizziness Allergy and Immunology ROS: no allergic symptoms or urticaria Hematological and Lymphatic ROS: no swollen glands, unusual bleeding or bruising Endocrine ROS: no polyuria, polydipsia, weight changes, temperature intolerance Respiratory ROS: no cough, shortness of breath, or wheezing Cardiovascular ROS: no chest pain or dyspnea on exertion Gastrointestinal ROS: denies abdominal pain, bright red blood in stool. Musculoskeletal ROS: no myalgias or arthralgias Neurological ROS: no TIA or stroke symptoms Dermatological ROS: no new or changing skin lesions, rashes or pruritis Physical Exam Physical Exam General appearance: alert, cooperative, no distress, appears stated age Head: Normocephalic, without obvious abnormality, atraumatic Eyes: conjunctivae/corneas clear. PERRL, EOM's intact. Fundi benign Throat: Lips, mucosa, and tongue normal. Teeth and gums normal Neck: supple, symmetrical, trachea midline, no adenopathy, thyroid: not enlarged, symmetric, no tenderness/mass/nodules, no carotid bruit and no JVD Lungs: clear to auscultation bilaterally Heart: regular rate and rhythm, S1, S2 normal, no murmur, click, rub or gallop Abdomen: soft, non-tender. Bowel sounds normal. No masses, no organomegaly Extremities: extremities normal, atraumatic, no cyanosis or edema Pulses: 2+ and symmetric Skin: Skin color, texture, turgor normal. No rashes or lesions Neurologic: Grossly normal Last 24 Hour Vital Signs Date Time Temp Pulse Resp B/P (MAP) Pulse Ox O2 Delivery O2 Flow Rate FiO2 06/01/19 16:00 98.0 18 105/71 (82) 98 06/01/19 12:00 98.2 19 157/103 (121) 98 06/01/19 10:09 172/107 06/01/19 10:09 97 172/107 06/01/19 10:08 172/107 06/01/19 09:53 97 172/107 (128) 06/01/19 09:00 Room Air 06/01/19 08:00 98.1 104 20 177/108 (131) 96 06/01/19 07:02 155/103 (120) 06/01/19 04:51 180/111 06/01/19 04:00 98.1 104 20 180/106 (130) 97 06/01/19 00:00 98.4 105 20 155/105 (122) 97 05/31/19 23:08 Room Air 05/31/19 22:52 98.5 109 20 149/110 (123) 97 05/31/19 21:37 99.5 110 18 159/86 98 Room Air 05/31/19 21:21 99.5 05/31/19 20:35 98.1 115 18 144/86 100 Room Air 05/31/19 20:00 110 18 Room Air 05/31/19 19:35 98.5 102 18 157/85 98 Room Air 05/31/19 19:01 98.1 116 18 158/95 (116) 95 Room Air Intake and Output 05/31/19 06/01/19 19:00 07:00 Intake Total 975.00 ml Balance 975.00 ml Intake Oral 700 ml IV Total 275.00 ml # Voids 5 Laboratory Tests Test 05/31/19 19:30 06/01/19 13:05 White Blood Count 7.1 K/UL (4.8-10.8) Red Blood Count 4.41 M/UL (4.70-6.10) L Hemoglobin 13.9 G/DL (14.2-18.0) L Hematocrit 41.2 % (42.0-52.0) L Mean Corpuscular Volume 93 FL (80-99) Mean Corpuscular Hemoglobin 31.4 PG (27.0-31.0) H Mean Corpuscular Hemoglobin Concent 33.6 G/DL (32.0-36.0) Red Cell Distribution Width 12.1 % (11.6-14.8) Platelet Count 269 K/UL (150-450) Mean Platelet Volume 5.3 FL (6.5-10.1) L Neutrophils (%) (Auto) 54.3 % (45.0-75.0) Lymphocytes (%) (Auto) 24.0 % (20.0-45.0) Monocytes (%) (Auto) 14.1 % (1.0-10.0) H Eosinophils (%) (Auto) 6.0 % (0.0-3.0) H Basophils (%) (Auto) 1.7 % (0.0-2.0) Sodium Level 143 MMOL/L (136-145) Potassium Level 3.9 MMOL/L (3.5-5.1) Chloride Level 108 MMOL/L (98-107) H Carbon Dioxide Level 29 MMOL/L (21-32) Anion Gap 6 mmol/L (5-15) Blood Urea Nitrogen 19 mg/dL (7-18) H Creatinine 1.5 MG/DL (0.55-1.30) H Estimat Glomerular Filtration Rate 58.9 mL/min (>60) Glucose Level 112 MG/DL (74-106) H Lactic Acid Level 1.50 mmol/L (0.4-2.0) Calcium Level 9.1 MG/DL (8.5-10.1) Total Bilirubin 0.2 MG/DL (0.2-1.0) Aspartate Amino Transf (AST/SGOT) 13 U/L (15-37) L Alanine Aminotransferase (ALT/SGPT) 18 U/L (12-78) Alkaline Phosphatase 83 U/L (46-116) Pro-B-Type Natriuretic Peptide 154 pg/mL (0-125) H Total Protein 7.7 G/DL (6.4-8.2) Albumin 3.1 G/DL (3.4-5.0) L Globulin 4.6 g/dL Albumin/Globulin Ratio 0.7 (1.0-2.7) L Erythrocyte Sedimentation Rate 33 MM/HR (0-20) H Microbiology Date/Time Source Procedure Growth Status 05/31/19 19:30 Wound Gram Stain - Final Resulted 05/31/19 19:30 Wound Wound Culture Pending Resulted Height (Feet): 6 Height (Inches): 3.00 Weight (Pounds): 240 Medications Current Medications Medications (Trade) Dose Ordered Sig/Ramona Route PRN Reason Start Time Stop Time Status Last Admin Dose Admin Acetaminophen/ Hydrocodone Bitart ([place] 5/325) 1 tab Q4H PRN ORAL Severe Pain (Pain Scale 7-10) 06/01/19 01:15 06/08/19 01:14 06/01/19 13:20 Amitriptyline HCl (Elavil) 100 mg DAILY ORAL 06/01/19 09:00 07/01/19 08:59 06/01/19 10:08 Amlodipine Besylate (Norvasc) 10 mg DAILY ORAL 06/02/19 09:00 07/02/19 08:59 Atenolol (Tenormin) 50 mg BID ORAL 06/01/19 09:00 07/01/19 08:59 06/01/19 10:09 Dextrose (Dextrose 50%) 25 ml Q30M PRN IV Hypoglycemia 06/01/19 01:15 07/01/19 01:14 Dextrose (Dextrose 50%) 50 ml Q30M PRN IV Hypoglycemia 06/01/19 01:15 07/01/19 01:14 Gabapentin (Neurontin) 200 mg Q6HR ORAL 06/01/19 06:00 07/01/19 05:59 06/01/19 12:31 Heparin Sodium (Porcine) (Heparin 5000 units/ml) 5,000 units EVERY 12 HOURS SUBQ 06/01/19 09:00 07/01/19 08:59 06/01/19 10:07 Hydralazine HCl (Apresoline) 25 mg Q6H PRN ORAL For High Blood Pressure 06/01/19 01:30 07/01/19 01:29 06/01/19 04:51 Insulin Aspart (NovoLOG) BEFORE MEALS AND HS SUBQ 06/01/19 06:30 07/01/19 06:29 06/01/19 16:52 Losartan Potassium (Cozaar) 50 mg TWICE A DAY ORAL 06/01/19 09:00 07/01/19 08:59 06/01/19 10:08 Piperacillin Sod/ Tazobactam Sod 3.375 gm/Sodium Chloride 110 ml @ 27.5 mls/hr Q8H IVPB 06/01/19 04:00 06/08/19 03:59 06/01/19 13:15 Tramadol HCl (Ultram) 50 mg Q6H PRN ORAL Mild Pain (Pain Scale 1-3) 06/01/19 01:15 06/08/19 01:14 Vancomycin HCl (Vanco rx to dose) 1 ea DAILY PRN MISC Per rx protocol 06/01/19 01:30 07/01/19 01:29 Vancomycin HCl 1.25 gm/Dextrose 275 ml @ 183.33 mls/ hr Q12H IVPB 06/01/19 06:00 06/06/19 05:59 06/01/19 04:39 Assessment/Plan Problem List: (1) Cellulitis, leg Assessment & Plan: Patient presented on admission with wound posterior L tibia.100% fibrinous slough noted at base of wound. Small area of necrosis noted along borders.(L)6.5cm x (W)5.5cm. Small amt non-odorous seropurulent exudate noted. darker skin tone noted periwound.No elevation in skin temp or edema noted periwound. Pt stated he developed small wound approx 3 weeks ago and has been self treating wound but wound became progressively worse. Pt denied pain at site of wound. Stable dry eschar noted to lateral L tibia. (L)4.5cm x (W)1cm. Pt stated wound was from previous fall.Diabetic/ Neuropathic Education provided of risks vs benefits to maintaining good foot care. Pt instructed to check skin daily during showers and to seek medical attention for any open wounds. Advised to thoroughly dry between toes after showers. Tx.Plan: Cleanse wound posterior L tibia with Saline. Apply Aquacel AG (Silver Alginate) cut to size of wound. Cover with ABD pad.Wrap with Kerlix daily and prn. Elevate legs on pillow. ICD Codes: L03.119 - Cellulitis of unspecified part of limb SNOMED: 937522675 (2) Generalized pain ICD Codes: R52 - Generalized pain SNOMED: 35272770 (3) Leg ulcer Assessment & Plan: DAILY ESTIMATED NEEDS: Needs based on Wound, DM, obese 95.9kg adj 20-25 kcals/kg 2034-5785 total kcals 1.25-1.5 g protein/kg 120-144 g total protein 25-30 mL/kg 1236-0212 total fluid mLs NUTRITION DIAGNOSIS: 1) Increased pro needs r/t wound healing as evidenced by pt adm w/ open DM L leg ulcer. 2) Decreased sodium needs r/t hypertension as evidenced by BP of 157/103. PO DIET RECOMMENDATIONS: CCHO MED/ LOW NA + extra pro portions ADDITIONAL RECOMMENDATIONS: 1) Diet recs as above 2) F/up w/ wound care eval -> Add TAO BID -> Add Vit C 250mg BID -> Add MVI x1 daily 3) Maintain weekly calibrated bed scale wts , ICD Codes: L97.909 - Non-pressure chronic ulcer of unspecified part of unspecified lower leg with unspecified severity SNOMED: 27542513, 455487321 Qualifiers: Qualified Codes: L97.929 - Non-pressure chronic ulcer of unspecified part of left lower leg with unspecified severity Emmanuel Cutler Jun 01, 2019 17:18
--- NOTE | 2019-06-01 19:00 | NUR ---
NURSE NOTES: Noted patient blood pressure,patent state not dizzy,patient state he feels fine.Reinforce to patient to call for assist.will endorse to monitor blood pressure.Call l;ight within reach.
[2019-06-01] MEDS: Ascorbic Acid 500mg tab ORAL SCH (19:13)
--- NOTE | 2019-06-01 19:35 | NUR ---
HAND-OFF: Report given to Monik HERNANDEZ.
--- NOTE | 2019-06-01 19:56 | NUR ---
NURSE NOTES: Received patient in bed, awake, alert, oriented, able to make his needs known, no acute distress noted,IV site is clean dry and intact. Call light is within reach, bed is in low position, locked, alarm is on. Will continue to monitor for safety and comfort.
[2019-06-02] VITALS: BP 133/85
[2019-06-02] MEDS: Piperacillin/Tazobactam 3.375 GM in NS 110 ML IVPB SCH ×2 (03:54→11:49)
[2019-06-02] MEDS: HYDROcodone/Acetamin 5/325 tab ORAL PRN (03:59)
[2019-06-02 04:00] VITALS: BP 156/92
[2019-06-02] MEDS: Vancomycin 1.25gm/D5W 275ml IVPB SCH ×2 (05:57)
[2019-06-02] MEDS: NovoLOG Insulin Flexpen SUBQ SCH ×3 (05:59→16:30)
[2019-06-02 06:32] LABS: EOSINOPHILS % (AUTO) 4.4 % (0.0-3.0); HEMATOCRIT 42.6 % (42.0-52.0); HEMOGLOBIN 13.5 G/DL (14.2-18.0); LYMPHOCYTES % (AUTO) 29.8 % (20.0-45.0); MEAN CORPUSCULAR VOLUME 98 FL (80-99); MONOCYTES % (AUTO) 11.1 % (1.0-10.0); NEUTROPHILS % (AUTO) 52.6 % (45.0-75.0); PLATELET COUNT 272 K/UL (150-450); RED BLOOD COUNT 4.34 M/UL (4.70-6.10); RED CELL DISTRIBUTION WIDTH 12.7 % (11.6-14.8); WHITE BLOOD COUNT 7.7 K/UL (4.8-10.8)
[2019-06-02 06:47] LABS: ANION GAP 4 mmol/L (5-15); BLOOD UREA NITROGEN 23 mg/dL (7-18); CALCIUM 8.4 MG/DL (8.5-10.1); CARBON DIOXIDE 28 MMOL/L (21-32); CHLORIDE 107 MMOL/L (98-107); CREATININE 1.4 MG/DL (0.55-1.30); POTASSIUM 4.6 MMOL/L (3.5-5.1); SODIUM 139 MMOL/L (136-145)
--- NOTE | 2019-06-02 07:08 | NUR ---
HAND-OFF: Report given to Sweetie HERNANEDZ.
--- NOTE | 2019-06-02 07:09 | NUR ---
NURSE NOTES: Received pt in bed. AAO x 4. No c/o of distress/pain. IV on L AC 20g intact and patent, running vanco. Bed in the lowest and locked. Call light within reach. Will continue to monitor
[2019-06-02 08:00] VITALS: BP 125/84
[2019-06-02] MEDS: Amitriptyline 100mg tab ORAL SCH (08:45)
[2019-06-02] MEDS: Losartan 50mg tab ORAL SCH (08:46)
[2019-06-02] MEDS: Ascorbic Acid 500mg tab ORAL SCH ×2 (08:46→18:00)
[2019-06-02] MEDS: Heparin 5000 units/ml inj SUBQ SCH (08:47)
[2019-06-02 12:00] VITALS: BP 122/87
--- NOTE | 2019-06-02 13:42 | Discharge Instructions ---
Discharge Instructions Discharge Instructions Follow up with: PCP Diet: diabetic calorie control Activity: resume normal activities For Surgical Patients Dressing Care: other - continue dressing care May shower: Yes For Congestive Heart Failure Reminder Report to your physician any weight gain of 5 pounds or more in one week. Eleanor Corona DO Jun 02, 2019 13:42
--- NOTE | 2019-06-02 13:43 | NUR ---
CASE MANAGEMENT: REVIEW 06/02/2019 SI:HYPERGLYCEMIA. DIABETIC ULCER. T 98.2 HR 74 RR 18 B/P 122/87 SATS 96% ON RA BUN 23 CR 1.4 GLU 151 CA 9.8 CA 8.4 IS: VITAMIN C PO BID TENORMIN PO BID ELAVIL PO QD NORVASC PO QD INSULIN ASPART SUBQ AC/HS VANCO IV Q12H GABAPENTIN PO Q6H HYDRALAZINE PO Q6H ZOSYN IV Q8H MED/SURG STATUS DCP: PATIENT TO BE DISCHARGED TO HOME ONCE MEDICALLY CLEARED. PLAN OF CARE: 2D ECHO EF 60-65% WOUND CARE
--- NOTE | 2019-06-02 13:47 | NUR ---
INSURANCE FAX#[phone] REVIEWS/CLINICALS
--- NOTE | 2019-06-02 15:06 | NUR ---
P.T Note: P.T evaluation completed. Pt is independent in all areas of bed mobility, transfers and gait/locomotion using the FWW. Pt is functioning safely and independently and currently at baseline. Skilled P.T service not needed at this time. thank you for this referral.
--- NOTE | 2019-06-02 15:23 | Discharge Summary ---
Discharge Summary Hospital Course Date of Admission May 31, 2019 at 20:28 Date of Discharge 06/02/19 Admitting Diagnosis hyperglycemia, diabetic ulcer Reason for Hospitalization: Left leg ulcer, difficulty walking, pain HPI Chang Carlos is a 54 year old male who was admitted on May 31, 2019 at 20: 28 for Hyperglycemia,Diabetic Ulcer 54-year-old male with past medical history of diabetes, hypertension, dyslipidemia, neuropathy presented for weakness in the legs and pain in his knees as well as left lower extremity where he has a chronic ulcer. Consultations Infectious disease Procedures No procedures Hospital Course Patient was admitted on broad-spectrum antibiotics for left lower extremity ulcer. He had a clean-based left lower extremity ulcer behind the calf with no exited, no elevated white count on labs, no fevers chills. Patient was also complaining of bilateral knee pain and stated that he had a prior right knee complete reconstruction as well as left knee arthroscopy. He states that he is able to walk but does have some weakness in his legs with history of diabetic neuropathy. Patient admits to lower back pain denies bowel or bladder incontinence. Wound culture from left lower extremity showed MRSA. Patient was also treated for hypertension with reinstitution of his home medications. Patient was found to have STARLA with creatinine of 1.5 versus CKD. Patient was evaluated by nephrology who agreed with treatment plan of holding arm and holding fluids for now given patient's history. Next day creatinine went down to 1.4. In discussion with nephrology we both agree that patient likely has CKD from diabetic nephropathy and hypertensive nephrosclerosis. Patient was evaluated by physical therapy who cleared patient for discharge and stated he had all DME is available. Patient was cleared for discharge by all consulting services with doxycycline 100 mg p.o. twice daily x7 days plus Keflex 250 mg p.o. 4 times daily x7 days plus tramadol 50 mg p.o. every 6 hours with 30 tablets. Patient was discharged home with home health in stable condition Discharge Medications New Medications: Cephalexin* (Keflex*) 250 Mg Capsule 250 MG ORAL QID for 7 Days, #28 CAP 0 Refills Doxycycline Monohydrate* (Doxycycline Monohydrate*) 100 Mg Capsule 100 MG ORAL Q12H for 7 Days, #14 CAP 0 Refills Tramadol Hcl* (Ultram*) 50 Mg Tablet 50 MG ORAL Q6H PRN, #30 TAB 0 Refills Continued Medications: Acetaminophen (Acetaminophen) 650 Mg/20.3 Ml Soln 500 MG ORAL Q8H PRN for Prn Headache/Temp > 101, ML 0 Refills [acuucheck strips] () #90 Amitriptyline Hcl* (Amitriptyline Hcl*) 100 Mg Tablet 100 MG PO DAILY, #30 Atenolol* (Tenormin*) 50 Mg Tablet 50 MG ORAL BID, TAB Enalapril Maleate* (Enalapril Maleate*) 20 Mg Tablet 20 MG PO DAILY, #30 Gabapentin* (Neurontin*) 100 Mg Capsule 200 MG ORAL Q6HR, CAP Glipizide* (Glipizide*) 5 Mg Tablet 5 MG ORAL BIDAC, TAB Hydrocodone Bit/Acetaminophen 5-325* ([place] 5-325*) 1 Each Tablet 1 TAB ORAL Q12HR PRN for For Pain, #10 TAB 0 Refills Insulin Glargine (Lantus) 5 Units Vial 22 SUBQ Q12HR, #1 EA 0 Refills Insulin Regular, Human* (Novolin R*) 100 Unit/1 Ml Vial 0 SUBQ AC+HS, UNITS Losartan Potassium* (Cozaar*) 50 Mg Tablet 50 MG ORAL TWICE A DAY, TAB Metformin Hcl* (Metformin Hcl*) 500 Mg Tablet 500 MG ORAL TWICE A DAY, TAB Tramadol Hcl* (Ultram*) 50 Mg Tablet 50 MG ORAL Q6H PRN for For Pain, #30 TAB 0 Refills Discharge Condition Upon Discharge: stable Discharge Disposition Patient was discharged to Home with home health Discharge Diagnoses: (1) MRSA (methicillin resistant staph aureus) culture positive (2) Leg ulcer (3) Hyperglycemia (4) Hypercholesteremia (5) HTN (hypertension) (6) Generalized pain (7) Neuropathy (8) diabetes Discharge Instructions Discharge Instructions Follow up with: PCP Activity: resume normal activities For Surgical Patients Dressing Care: other May shower: Yes Eleanor Corona DO Jun 02, 2019 15:23
[2019-06-02] MEDS ORDERED: TRAMADOL HCL50 MG ORAL (15:58)
[2019-06-02] MEDS ORDERED: KEFLEX250 MG ORAL (15:58)
[2019-06-02] MEDS ORDERED: DOXYCYCLINE MO100 MG ORAL (15:58)
[2019-06-02 16:00] VITALS: BP 114/69
--- NOTE | 2019-06-02 16:32 | Infectious Diseases Prog Note ---
Assessment/Plan Assessment/Plan Full consult dictated: A) 1) staph aureus left leg wound infection 2) pmh noted 3) allergies - nkda P) 1) vancomycin - can change to doxy and keflex x one week 2) surgery evaluation noted 3) d/w Subjective Allergies: Coded Allergies: No Known Allergies (Unverified , 01/20/14) Objective Vital Signs Last 24 Hour Vital Signs Date Time Temp Pulse Resp B/P (MAP) Pulse Ox O2 Delivery O2 Flow Rate FiO2 06/02/19 12:00 98.2 74 18 122/87 (99) 96 06/02/19 09:00 Room Air 06/02/19 08:46 84 125/84 06/02/19 08:46 125/84 06/02/19 08:46 84 125/84 06/02/19 08:00 98.2 84 18 125/84 (98) 97 06/02/19 04:30 97.1 06/02/19 04:00 96.8 91 19 156/92 (113) 06/02/19 00:00 97.1 88 19 133/85 (101) 06/01/19 21:31 Room Air 06/01/19 20:00 96.6 80 20 104/65 (78) 06/01/19 18:00 77 94/60 Height (Feet): 6 Height (Inches): 3.00 Weight (Pounds): 240 Microbiology Date/Time Source Procedure Growth Status 05/31/19 19:35 Blood Blood Culture - Preliminary NO GROWTH AFTER 24 HOURS Resulted 05/31/19 19:30 Blood Blood Culture - Preliminary NO GROWTH AFTER 24 HOURS Resulted 05/31/19 19:30 Wound Gram Stain - Final Resulted 05/31/19 19:30 Wound Culture - Preliminary Staphylococcus Aureus Resulted Laboratory Tests Test 06/02/19 06:00 White Blood Count 7.7 K/UL (4.8-10.8) Red Blood Count 4.34 M/UL (4.70-6.10) L Hemoglobin 13.5 G/DL (14.2-18.0) L Hematocrit 42.6 % (42.0-52.0) Mean Corpuscular Volume 98 FL (80-99) Mean Corpuscular Hemoglobin 31.2 PG (27.0-31.0) H Mean Corpuscular Hemoglobin Concent 31.7 G/DL (32.0-36.0) L Red Cell Distribution Width 12.7 % (11.6-14.8) Platelet Count 272 K/UL (150-450) Mean Platelet Volume 5.4 FL (6.5-10.1) L Neutrophils (%) (Auto) 52.6 % (45.0-75.0) Lymphocytes (%) (Auto) 29.8 % (20.0-45.0) Monocytes (%) (Auto) 11.1 % (1.0-10.0) H Eosinophils (%) (Auto) 4.4 % (0.0-3.0) H Basophils (%) (Auto) 2.0 % (0.0-2.0) Sodium Level 139 MMOL/L (136-145) Potassium Level 4.6 MMOL/L (3.5-5.1) Chloride Level 107 MMOL/L (98-107) Carbon Dioxide Level 28 MMOL/L (21-32) Anion Gap 4 mmol/L (5-15) L Blood Urea Nitrogen 23 mg/dL (7-18) H Creatinine 1.4 MG/DL (0.55-1.30) H Estimat Glomerular Filtration Rate > 60 mL/min (>60) Glucose Level 151 MG/DL (74-106) H Hemoglobin A1c 9.8 % (4.3-6.0) H Calcium Level 8.4 MG/DL (8.5-10.1) L Current Medications Medications (Trade) Dose Ordered Sig/Ramona Route PRN Reason Start Time Stop Time Status Last Admin Dose Admin Acetaminophen/ Hydrocodone Bitart ([place] 5/325) 1 tab Q4H PRN ORAL Severe Pain (Pain Scale 7-10) 06/01/19 01:15 06/08/19 01:14 06/02/19 03:59 Amitriptyline HCl (Elavil) 100 mg DAILY ORAL 06/01/19 09:00 07/01/19 08:59 06/02/19 08:45 Amlodipine Besylate (Norvasc) 10 mg DAILY ORAL 06/02/19 09:00 07/02/19 08:59 06/02/19 08:46 Ascorbic Acid (Vitamin C) 250 mg TWICE A DAY ORAL 06/01/19 18:00 07/01/19 17:59 06/02/19 08:46 Atenolol (Tenormin) 50 mg BID ORAL 06/01/19 09:00 07/01/19 08:59 06/02/19 08:46 Dextrose (Dextrose 50%) 25 ml Q30M PRN IV Hypoglycemia 06/01/19 01:15 07/01/19 01:14 Dextrose (Dextrose 50%) 50 ml Q30M PRN IV Hypoglycemia 06/01/19 01:15 07/01/19 01:14 Gabapentin (Neurontin) 200 mg Q6HR ORAL 06/01/19 06:00 07/01/19 05:59 06/02/19 11:49 Heparin Sodium (Porcine) (Heparin 5000 units/ml) 5,000 units EVERY 12 HOURS SUBQ 06/01/19 09:00 07/01/19 08:59 06/02/19 08:47 Hydralazine HCl (Apresoline) 25 mg Q6H PRN ORAL For High Blood Pressure 06/01/19 01:30 07/01/19 01:29 06/01/19 04:51 Hydralazine HCl (Apresoline) 25 mg Q6HR ORAL 06/02/19 18:00 07/02/19 17:59 Insulin Aspart (NovoLOG) BEFORE MEALS AND HS SUBQ 06/01/19 06:30 07/01/19 06:29 06/02/19 11:42 Multivitamins (Multivitamins) 1 tab DAILY ORAL 06/02/19 09:00 07/02/19 08:59 06/02/19 08:45 Piperacillin Sod/ Tazobactam Sod 3.375 gm/Sodium Chloride 110 ml @ 27.5 mls/hr Q8H IVPB 06/01/19 04:00 06/08/19 03:59 06/02/19 11:49 Tramadol HCl (Ultram) 50 mg Q6H PRN ORAL Mild Pain (Pain Scale 1-3) 06/01/19 01:15 06/08/19 01:14 06/02/19 08:56 Vancomycin HCl (Vanco rx to dose) 1 ea DAILY PRN MISC Per rx protocol 06/01/19 01:30 07/01/19 01:29 Vancomycin HCl/ Dextrose 275 ml @ 183.333 mls/hr Q12HR@0600,1800 IVPB 06/02/19 18:00 06/07/19 17:59 Dez Cardoza MD Jun 02, 2019 16:32
[2019-06-02 17:08] LABS: APPEARANCE,URINE CLEAR; BILIRUBIN, URINE NEGATIVE (NEGATIVE); COLOR,URINE PALE YELLOW; GLUCOSE, URINE (UA) NEGATIVE (NEGATIVE); KETONES,URINE NEGATIVE (NEGATIVE); LEUKOCYTE ESTERASE ,URINE NEGATIVE (NEGATIVE); NITRITE,URINE NEGATIVE (NEGATIVE); PH,URINE 6 (4.5-8.0); PROTEIN,URINE NEGATIVE (NEGATIVE); UROBILINOGEN,URINE NORMAL MG/DL (0.0-1.0)
[2019-06-02] MEDS ORDERED: Vancomycin 1.25gm Premix IVPB SCH (18:00)
[2019-06-02] MEDS ORDERED: HydrALAZINE 25mg tab ORAL SCH (18:00)
--- NOTE | 2019-06-02 19:17 | Surgery Progress Note ---
Surgery Progress Note Subjective Additional Comments no acute events comfortable stable. no complaints Objective Last 24 Hour Vital Signs Date Time Temp Pulse Resp B/P (MAP) Pulse Ox O2 Delivery O2 Flow Rate FiO2 06/02/19 16:00 98.5 74 18 114/69 (84) 96 06/02/19 12:00 98.2 74 18 122/87 (99) 96 06/02/19 09:00 Room Air 06/02/19 08:46 84 125/84 06/02/19 08:46 125/84 06/02/19 08:46 84 125/84 06/02/19 08:00 98.2 84 18 125/84 (98) 97 06/02/19 04:30 97.1 06/02/19 04:00 96.8 91 19 156/92 (113) 06/02/19 00:00 97.1 88 19 133/85 (101) 06/01/19 21:31 Room Air 06/01/19 20:00 96.6 80 20 104/65 (78) I&O Intake and Output 06/01/19 06/02/19 19:00 07:00 Intake Total 720 ml 82.5 ml Balance 720 ml 82.5 ml Intake Oral 720 ml IV Total 82.5 ml Dressing: dry Wound: other Cardiovascular: RSR Respiratory: clear Abdomen: soft, non-tender, present bowel sounds Extremities: edema, no tenderness, no cyanosis, other Laboratory Tests Test 06/02/19 06:00 06/02/19 16:10 White Blood Count 7.7 K/UL (4.8-10.8) Red Blood Count 4.34 M/UL (4.70-6.10) L Hemoglobin 13.5 G/DL (14.2-18.0) L Hematocrit 42.6 % (42.0-52.0) Mean Corpuscular Volume 98 FL (80-99) Mean Corpuscular Hemoglobin 31.2 PG (27.0-31.0) H Mean Corpuscular Hemoglobin Concent 31.7 G/DL (32.0-36.0) L Red Cell Distribution Width 12.7 % (11.6-14.8) Platelet Count 272 K/UL (150-450) Mean Platelet Volume 5.4 FL (6.5-10.1) L Neutrophils (%) (Auto) 52.6 % (45.0-75.0) Lymphocytes (%) (Auto) 29.8 % (20.0-45.0) Monocytes (%) (Auto) 11.1 % (1.0-10.0) H Eosinophils (%) (Auto) 4.4 % (0.0-3.0) H Basophils (%) (Auto) 2.0 % (0.0-2.0) Sodium Level 139 MMOL/L (136-145) Potassium Level 4.6 MMOL/L (3.5-5.1) Chloride Level 107 MMOL/L (98-107) Carbon Dioxide Level 28 MMOL/L (21-32) Anion Gap 4 mmol/L (5-15) L Blood Urea Nitrogen 23 mg/dL (7-18) H Creatinine 1.4 MG/DL (0.55-1.30) H Estimat Glomerular Filtration Rate > 60 mL/min (>60) Glucose Level 151 MG/DL (74-106) H Hemoglobin A1c 9.8 % (4.3-6.0) H Calcium Level 8.4 MG/DL (8.5-10.1) L Urine Color Pale yellow Urine Appearance Clear Urine pH 6 (4.5-8.0) Urine Specific [place] 1.015 (1.005-1.035) Urine Protein Negative (NEGATIVE) Urine Glucose (UA) Negative (NEGATIVE) Urine Ketones Negative (NEGATIVE) Urine Blood Negative (NEGATIVE) Urine Nitrite Negative (NEGATIVE) Urine Bilirubin Negative (NEGATIVE) Urine Urobilinogen Normal MG/DL (0.0-1.0) Urine Leukocyte Esterase Negative (NEGATIVE) Urine RBC 0-2 /HPF (0 - 0) H Urine WBC 0-2 /HPF (0 - 0) Urine Squamous Epithelial Cells Occasional /LPF Urine Bacteria None /HPF (NONE) Plan Problems: (1) Cellulitis, leg Assessment & Plan: Patient presented on admission with wound posterior L tibia.100% fibrinous slough noted at base of wound. Small area of necrosis noted along borders.(L)6.5cm x (W)5.5cm. Small amt non-odorous seropurulent exudate noted. darker skin tone noted periwound.No elevation in skin temp or edema noted periwound. Pt stated he developed small wound approx 3 weeks ago and has been self treating wound but wound became progressively worse. Pt denied pain at site of wound. Stable dry eschar noted to lateral L tibia. (L)4.5cm x (W)1cm. Pt stated wound was from previous fall.Diabetic/ Neuropathic Education provided of risks vs benefits to maintaining good foot care. Pt instructed to check skin daily during showers and to seek medical attention for any open wounds. Advised to thoroughly dry between toes after showers. Tx.Plan: Cleanse wound posterior L tibia with Saline. Apply Aquacel AG (Silver Alginate) cut to size of wound. Cover with ABD pad.Wrap with Kerlix daily and prn. Elevate legs on pillow. (2) Generalized pain (3) Leg ulcer Assessment & Plan: DAILY ESTIMATED NEEDS: Needs based on Wound, DM, obese 95.9kg adj 20-25 kcals/kg 9052-6925 total kcals 1.25-1.5 g protein/kg 120-144 g total protein 25-30 mL/kg 1387-0258 total fluid mLs NUTRITION DIAGNOSIS: 1) Increased pro needs r/t wound healing as evidenced by pt adm w/ open DM L leg ulcer. 2) Decreased sodium needs r/t hypertension as evidenced by BP of 157/103. PO DIET RECOMMENDATIONS: CCHO MED/ LOW NA + extra pro portions ADDITIONAL RECOMMENDATIONS: 1) Diet recs as above 2) F/up w/ wound care eval -> Add TAO BID -> Add Vit C 250mg BID -> Add MVI x1 daily 3) Maintain weekly calibrated bed scale Omayra inman Pouya Jun 02, 2019 19:17
--- NOTE | 2019-06-02 19:26 | NUR ---
NURSE NOTES: Pt was discharged to home via private vehicle with family member. ID and IV was removed. No infection on the removal site. Skin intact. Discharge instructions were given. Prescription was sent to pharmacy and medications were brought to patient. Pt was escorted to [facility]. Belongings were accounted for.
--- NOTE | 2019-06-02 19:30 | Consultation ---
DATE OF CONSULTATION: 06/02/2019 INFECTIOUS DISEASES CONSULTATION CONSULTING PHYSICIAN: Dez Cardoza M.D. ATTENDING PHYSICIAN: Tr Forman M.D. REFERRING PHYSICIAN: Eleanor Corona M.D. REASON FOR CONSULTATION: Left leg infected wound. CHIEF COMPLAINT: The patient's chief complaint coming in to the hospital is left leg infected wound, hyperglycemia, and infected left leg ulcer. HISTORY OF PRESENT ILLNESS: This is a very pleasant 54-year-old male who comes to [facility] with hyperglycemia and also infected left leg wound and ulcer. Infectious Diseases consultation requested. The patient started on vancomycin and Zosyn. The patient's wound was noted it has improved and looks more superficial. The patient will be followed by Surgery and wound care nurse. The patient will be continued on vancomycin and I will discontinue Zosyn. Wound culture has Staph aureus organism growing, identification is pending. Blood cultures are negative. MAR was noted. Orders were noted. Notes were reviewed. Sedimentation rate is only 33. REVIEW OF SYSTEMS: Main issue left leg pain, wound and ulcer. No fever or chills. HEAD AND NECK: No head pain or neck pain. CARDIAC: No chest pain. GASTROINTESTINAL: No nausea, vomiting, or diarrhea. GENITOURINARY: No dysuria, urgency, or frequency . PULMONARY: No congestion or shortness of breath. CARDIAC: No chest pain. SKIN: No rash. NEUROLOGIC: No seizures. PAST MEDICAL HISTORY: The patient's past medical history includes the following. The past has a past medical history of elevated creatinine. He has history of diabetes. He has history of anemia. Again, diabetes, anemia, and elevated creatinine. The patient has a history of hypertension, history of diabetes. He has history of left knee surgery. ALLERGIES: No known drug allergies. SOCIAL HISTORY: Negative for smoking, alcohol, or drug abuse. FAMILY HISTORY: Noncontributory. MEDICATIONS: Upon reviewing the MAR, he is on the following medications. He is on vancomycin, hydralazine, amlodipine. He is on multivitamin, ascorbic acid, amitriptyline or Elavil. He is on heparin, insulin, gabapentin. He is on Zosyn, vancomycin, I stopped Zosyn. He is on hydrocodone and tramadol. Outside medications noted and reconciliated. PHYSICAL EXAMINATION: VITAL SIGNS: Temperature is 98.2, pulse rate 84, respiratory rate 18, blood pressure 125/84, saturation 97%. GENERAL: Alert and responsive, no acute distress. HEAD AND NECK: Oral exam, no thrush. Eye exam, no icterus. Neck is supple. No JVD. Normocephalic. HEART: Regular. No gallop or murmur. No friction rub. ABDOMEN: Soft. Positive bowel sounds. Nontender LUNGS: Clear bilaterally. No rhonchi and rales. SKIN: No rash. MUSCULOSKELETAL: No effusion. Legs are without cellulitis. PERIPHERAL VASCULAR: No gangrene. Left leg wound was noted, it is more superficial, but has necrosis. GENITOURINARY: No [place]. LINE SITES: Without phlebitis. NEUROLOGIC: Intact. Nonfocal. LABORATORY DATA: White count 7.7, hemoglobin 13.5. White count yesterday was 7.1, hemoglobin 13.9. Sedimentation rate 33. Creatinine 1.4. Wound culture has Staph aureus. Sensitivities are pending. Blood cultures negative. No imaging studies. ASSESSMENT/PLAN: 1. The patient has Staph aureus, left leg infected wound and ulcer. It is unclear if the patient underlying spider bite. It is more on the superficial side. At this time, MRSA. The patient does have elevated creatinine. Continue vancomycin for now. Transition to oral doxycycline and Keflex. The patient needed to be discharged. Continue vancomycin for now for Staph aureus left leg infected wound ulcer and wound care protocol. Again, can transition to oral doxycycline and Keflex x1 week upon discharge. Case was discusssed with Dr. Corona. The patient was seen by Surgery. No surgical intervention at this time. Again, this is a Staph aureus left leg infected wound ulcer. Continue vancomycin for now. 2. Elevated creatinine. 3. Anemia. 4. Diabetes. 5. Hypertension. 6. Blood sugar and blood pressure treatment per primary. 7. The patient has no known drug allergies. 8. Social history is negative. 9. Family history is noncontributory. 10. MAR was noted. 11. Case discussed with RN. 12. Continue treatment per primary consultants. Dez Cardoza M.D. DR: Eli JOB#: [id number] CC:
== END 2019-06-02 19:30 | disposition home or self-care (01) | DRG 380 ==
LOC: EDBEDREQ 19:26 → EMR 19:40 → 4E 20:28 → EDBEDREQ 21:08
DX: E11.622 Type 2 diabetes mellitus with other skin ulcer (principal); L03.116 Cellulitis of left lower limb; L97.229 Non-pressure chronic ulcer of left calf with unspecified severity; E11.65 Type 2 diabetes mellitus with hyperglycemia; B95.61 Methicillin susceptible Staphylococcus aureus infection as the cause of diseases classified elsewhere; E11.40 Type 2 diabetes mellitus with diabetic neuropathy, unspecified; R52 Pain, unspecified; I25.10 Atherosclerotic heart disease of native coronary artery without angina pectoris; J45.909 Unspecified asthma, uncomplicated; I12.9 Hypertensive chronic kidney disease with stage 1 through stage 4 chronic kidney disease, or unspecified chronic kidney disease; E11.22 Type 2 diabetes mellitus with diabetic chronic kidney disease; N18.9 Chronic kidney disease, unspecified; N17.9 Acute kidney failure, unspecified; Z79.4 Long term (current) use of insulin
CPT/HCPCS: 36415; 80048; 80053; 81001; 82962; 83036; 83605; 83880; 85025; 85651; 87040; 87070; 87181; 87205; 93306; 96361; 96365; 96375; 99285; J1815